=== PATIENT | male | born 1960 | race African-American/Black ===

== ENCOUNTER 2017-07-21 08:03 | Emergency (ER) | payer SELFPAY ==
[~2017-07-21] VITALS: Ht 172.7 cm; Wt 86.2 kg
[~2017-07-21 08:03] MED LIST: CIPRO500 MG PO; COLACE100 MG PO; IBUPROFEN600 MG PO; METFORMIN HCL850 M1 ORAL; METRONIDAZOLE500 MG ORAL; NORCO 5-325 TA1 EACH PO; NORCO 5/3251 TAB ORAL
[2017-07-21] MEDS ORDERED: HUMALOG KW200 UNIT/1 SQ (08:22)
[2017-07-21] MEDS ORDERED: HUMALOG JU100 UNIT/1 SQ (08:22)
--- NOTE | 2017-07-21 08:33 | Emergency Room Report ---
History of Present Illness General Chief Complaint: Upper Extremity Injury Source: Patient Present Illness HPI Patient reports hitting his left distal forearm on the tailgate of a truck about 10 days ago He reports that since then the swelling has come down however he has pain with attempts of picking up objects Pain is 5/10 worse with touch or lifting Patient has also noticed some of the swelling persisting Denies any tingling in the fingers denies any elbow pain Denies any other lacerations Allergies: Coded Allergies: No Known Allergies (Unverified , 12/13/12) Patient History Past Medical History: see triage record Pertinent Family History: none Reviewed Nursing Documentation: PMH: Agreed, PSxH: Agreed Nursing Documentation-PMH Hx Diabetes: Yes Hx Gastrointestinal Problems: Yes - Hernia Review of Systems All Other Systems: negative except mentioned in HPI Physical Exam Vital Signs Date Time Temp Pulse Resp B/P (MAP) Pulse Ox O2 Delivery O2 Flow Rate FiO2 07/21/17 08:06 97.9 87 16 153/93 98 Room Air Sp02 EP Interpretation: reviewed, normal General Appearance: well appearing, no apparent distress Head: normocephalic, atraumatic Eyes: bilateral eye PERRL, bilateral eye EOMI ENT: normal pharynx Neck: supple, thyroid normal Respiratory: lungs clear, normal breath sounds Cardiovascular #1: regular rate, rhythm Musculoskeletal: swelling - Patient has some swelling noted to the distal radial aspect, tender on palpation, however nontender over the carpal region Neurologic: alert, oriented x3, other - Neuro vascularly intact Psychiatric: normal inspection Skin: other - as above Lymphatic: no adenopathy Procedures Splinting Splinting : Consent: Verbal Location: left forearm Pre-Made Type: velcro Splint: volar Pre-Proc Neuro Vasc Exam: normal Post-Proc Neuro Vasc Exam: normal Patient Tolerated: Well Complications: None Medical Decision Making Diagnostic Impression: Primary Impression: Contusion of wrist, left ER Course Patient had imaging studies obtained which were negative for acute fracture Given the mild swelling and discomfort patient was put on a splint And will have close outpatient followup Other X-Ray Diagnostic Results Other X-Ray Diagnostic Results : X-Ray ordered: left forearm # of Views/Limited Vs Complete: 2 View Indication: Pain EP Interpretation: Yes Interpretation: no dislocation, no soft tissue swelling, no fractures Impression: No acute disease Electronically Signed by: Ramón Herrera DO Last Vital Signs Date Time Temp Pulse Resp B/P (MAP) Pulse Ox O2 Delivery O2 Flow Rate FiO2 07/21/17 08:06 97.9 87 16 153/93 98 Room Air Status: improved Disposition: HOME, SELF-CARE Condition: Improved Scripts Ibuprofen* (MOTRIN*) 600 Mg Tablet 600 MG ORAL Q8H Y for For Pain, #20 TAB 0 Refills Prov: RAMÓN HERRERA D.O. 07/21/17 Additional Instructions: Patient is provided with the discharge instructions notified to follow up with primary doctor in the next 2-3 days otherwise return to the er with any worsening symptoms. Please note that this report is being documented using [employer] technology. This can lead to erroneous entry secondary to incorrect interpretation by the dictating instrument. RAMÓN HERRERA D.O. Jul 21, 2017 08:33
[2017-07-21] MEDS ORDERED: IBUPROFEN600 MG ORAL (09:09)
[2017-07-21 09:15] VITALS: BP 142/90
--- NOTE | 2017-07-21 09:25 | Diagnostic Imaging Report ---
Indication: Pain, trauma Technique: XRAY Forearm 2v L Comparison: None Findings: There is no acute fracture or dislocation. Visualized elbow and wrist articulations appear grossly preserved. No radiopaque foreign body seen. Impression: No acute fracture or dislocation.
== END 2017-07-21 09:15 | disposition home or self-care (01) ==
LOC: EMR 08:42
DX: S50.12XA Contusion of left forearm, initial encounter (principal); W22.8XXA Striking against or struck by other objects, initial encounter; Y93.9 Activity, unspecified; Y92.9 Unspecified place or not applicable; E11.9 Type 2 diabetes mellitus without complications
CPT/HCPCS: 99283